=== PATIENT | female | born 1965 | race African-American/Black ===

== ENCOUNTER → 2025-08-05 | Outpatient (REF) | payer MEDICARE, MEDICAID, SELFPAY ==
[2025-08-10 08:08] LABS: KEPPRA (LEVETIRACETAM) 93.6 ug/mL (10.0-40.0)
== END ==
LOC: OLS.SANC 05:00
DX: Z79.899 Other long term (current) drug therapy (principal)
CPT/HCPCS: 36415; 80177

== ENCOUNTER → 2025-08-07 | Outpatient (REF) | payer MEDICARE, MEDICAID, SELFPAY ==
[2025-08-08 09:03] LABS: Hematocrit 25.1 % (37-47); Hemoglobin 8.1 g/dL (12.0-15.0); Mean Corp Hgb Conc 32.3 g/dL (32-36); Mean Corpuscular Volume 98.0 fL (81-99); Mean Platelet Vol. 13.2 fl (6.2-12.0); Platelet Count 319 K/mm3 (150-450); RBC Distribution Width CV 16.9 % (11.6-14.6); RBC Distribution Width SD 60.4 fl (35.1-43.9); Red Blood Count 2.56 M/mm3 (4.2-5.4); White Blood Count 14.2 K/mm3 (4.4-11.0)
== END ==
LOC: OLS.SANC 10:30
DX: E11.9 Type 2 diabetes mellitus without complications (principal)
CPT/HCPCS: 85027

== ENCOUNTER → 2025-08-13 06:57 | Outpatient (REF) | payer MEDICARE, MEDICAID, SELFPAY ==
[2025-08-16 09:08] LABS: KEPPRA (LEVETIRACETAM) 62.1 ug/mL (10.0-40.0)
== END ==
LOC: OLS.SANC 06:57
DX: Z79.899 Other long term (current) drug therapy (principal)
CPT/HCPCS: 36415; 80177

== ENCOUNTER → 2025-08-19 05:00 | Outpatient (REF) | payer MEDICARE, MEDICAID, SELFPAY ==
[2025-08-23 10:07] LABS: KEPPRA (LEVETIRACETAM) 22.0 ug/mL (10.0-40.0)
== END ==
LOC: OLS.SANC 05:00
PROVIDERS: Visit Provider Internal Medicine
DX: Z79.899 Other long term (current) drug therapy (principal)
CPT/HCPCS: 36415; 80177

== ENCOUNTER → 2025-08-26 05:00 | Outpatient (REF) | payer MEDICARE, MEDICAID, SELFPAY ==
[2025-08-26 08:46] LABS: AST(SGOT) 56 U/L (<=31); Alanine Aminotransfer ALT/SGPT 36 U/L (<=34); Albumin, Serum 2.9 g/dL (3.4-4.8); Alkaline Phosphatase 769 U/L (35-104); Bilirubin, Direct 0.27 mg/dL (0.00-0.30); Globulin 3.8 g/dL (2.2-4.2)
== END ==
LOC: OLS.SANC 05:00
PROVIDERS: Visit Provider Internal Medicine
DX: Z79.899 Other long term (current) drug therapy (principal)
CPT/HCPCS: 36415; 80076; 80177